=== PATIENT | male | born 1975 | race Caucasian/White ===

== ENCOUNTER 2016-12-03 13:41 | Emergency (ER) | payer OTHER ==
[~2016-12-03] VITALS: Ht 160 cm; Wt 47.2 kg
[2016-12-03] MEDS ORDERED: SODIUM CHLORIDE 0.9% 1,000 ML IV ONE (16:00)
[2016-12-03 16:03] VITALS: BP 130/95
== END 2016-12-03 16:28 | disposition home or self-care (01) ==
LOC: EDUNIT# 13:41 → ER 13:41
DX: F10.229 Alcohol dependence with intoxication, unspecified (principal)

== ENCOUNTER 2016-12-17 20:05 | Emergency (ER) | payer OTHER ==
[~2016-12-17] VITALS: Ht 172.7 cm; Wt 90.7 kg
[2016-12-17] MEDS ORDERED: THIAMINE INJ 100 MG, MULTIPLE VITAMIN 10 ML, FOLIC ACID 1 MG, MAGNESIUM SULF SDV 50% 8 ... IV ONE ×5 (21:15)
[2016-12-17 21:50] LABS: Basophils # (auto) 0.1 uL; Eosinophils # (auto) 0.3 uL; Eosinophils % (auto) 3.6 % (0.0-7.0); Hemoglobin 11.9 g/dL (13.5-17.5); Lymphocytes # (auto) 3.3 uL; Lymphocytes % (auto) 40.8 % (10.0-50.0); Mean Corpuscular Hemoglobin 27.7 pg (28.0-32.0); Mean Corpuscular Hgb Conc. 33.1 g/dL (32.0-36.0); Mean Corpuscular Volume 83.6 fL (80.0-100.0); Mean Platelet Volume 6.9 fL (7.4-10.4); Monocytes # (auto) 0.6 uL; Monocytes % (auto) 7.7 % (0.0-12.0); Neutrophils # (auto) 3.8 uL; Neutrophils % (auto) 46.9 % (37.0-80.0); Platelet Count (auto) 342 10^3/uL (140-450); SUSPECT VIEW TRANSMISSION; White Blood Cell 8.2 10^3/uL (4.4-10.8)
[2016-12-17 22:12] LABS: Albumin 3.4 g/dL (3.4-5.0); BUN/Creatinine Ratio 12.2; Bilirubin, Total 0.4 mg/dL (0.2-1.0); Calcium 8.4 mg/dL (8.5-10.1); Potassium 3.7 mmol/L (3.5-5.1); Total Protein 8.1 g/dL (6.4-8.2)
[2016-12-18 03:13] VITALS: BP 113/58
== END 2016-12-18 03:28 | disposition home or self-care (01) ==
LOC: EDBD 20:05 → ER 20:09
DX: F10.129 Alcohol abuse with intoxication, unspecified (principal); M25.521 Pain in right elbow; R51 Headache; M54.2 Cervicalgia; R07.9 Chest pain, unspecified
CPT/HCPCS: 36415; 70450; 70486; 71010; 72125; 73070; 80053; 80320; 85025; 96365; 96366; 99285; G0434; J3411; J3475; J7030

== ENCOUNTER 2016-12-21 07:50 | Emergency (ER) | payer MEDICAID, OTHER ==
[2016-12-21] MEDS ORDERED: EPINEPHrine HCL 1 MG/10 ML SYRG ONE (07:53)
[2016-12-21] MEDS ORDERED: SODIUM BICARBONATE 8.4% INJ 50ML SYRINGE ONE (07:54)
[2016-12-21] MEDS ORDERED: AMIODARONE HCL (50 MG/ ML) 3 ML VIAL IV ONE (12:17)
[2016-12-21] MEDS ORDERED: CALCIUM CHLOR(10%) 100MG/ML 10ML SYRINGE IV ONE (12:17)
[2016-12-21] MEDS ORDERED: EPINEPHrine HCL 1 MG/10 ML SYRG IV ONE (12:17)
== END 2016-12-21 10:24 | disposition expired ==
LOC: ER 07:52 → EDBD 07:52 → EDUNIT# 07:52 → ER 10:24
DX: I46.9 Cardiac arrest, cause unspecified (principal)
CPT/HCPCS: 31500; 92950; 92960; 99291; J0171; J0282